=== PATIENT | female | born 1950 | race Caucasian/White ===

== ENCOUNTER → 2017-03-21 | Outpatient (CLI) | payer BC ==
--- NOTE | 2017-03-21 16:36 | KCIC ---
MRI left foot and MR left ankle without contrast dated 03/21/2017 3:30 PM Indication: Pain and swelling since the end of February , recent removal of great toenail possible osteomyelitis, pain. Comparison: Bone scan dated 03/14/2017 Technique: Routine multiplanar multisequence imaging performed to include the hindfoot and forefoot. No contrast administered. Findings: There is mild increased T2 signal at the nailbed of the great toe. Underlying cortex is grossly intact. No bone marrow edema or cortical destruction. No significant loss of signal on the T1-weighted images. Bone marrow signal is otherwise homogeneous. Mild hypertrophic change at the Lisfranc joints and interphalangeal joints throughout. Mild degenerative change of the first MTP joint. Plantar plate is grossly intact. There is mild edema within the plantar foot musculature the dorsal subcutaneous tissues. No focal fluid collection is identified. There is complete rupture of the tibialis anterior tendon which is retracted to the level of the oblique superior medial limb of the inferior extensor retinaculum, near the level of the talonavicular joint. Small amount of fluid along the torn end of the tendon. Medial cuneiform and first metatarsal attachment's are not identified. Mild increased signal within the extensor hallucis longus which is otherwise intact. The flexor tendons are intact. There is mild increased signal within the peroneus longus tendon which is otherwise intact. The Achilles tendon is somewhat thickened with mild increased signal in the tendon substance. No focal tear. Mild inflammatory changes along the Achilles peritenon. Plantar fascia is mildly thickened and of increased signal. Anterior talofibular ligament and posterior talofibular ligament are intact. Calcaneofibular ligament and tibiofibular ligaments are intact. There is mild increased signal along the fibers of the deltoid complex which are otherwise intact. No significant ankle joint effusion. The talar dome is intact. Mild hypertrophic change of the tibiotalar joint, subtalar joint and joints of midfoot. IMPRESSION LEFT ANKLE: 1. Complete rupture of the tibialis anterior tendon with proximal retraction to the level of the superior medial limb of the inferior extensor retinaculum. 2. Mild tendinosis of the peroneus longus. 3. Mild distal Achilles tendinosis with inflammatory changes along the Achilles peritenon. 4. Mild plantar fasciitis. 5. Nonspecific edema throughout the subcutaneous tissues. Given the clinical history this could be related to cellulitis. Diabetic neurovascular edema is also possible. No evidence of abscess or osteomyelitis. IMPRESSION LEFT FOOT: 1. Focal edema along the nailbed of the distal great toe, likely related to recent nail resection. There is no evidence of underlying osteomyelitis. 2. Nonspecific edema throughout the subcutaneous tissues and plantar foot musculature. Electronically signed by: Crescencio Pryor MD (03/21/2017 4:33 PM) [id number]
== END | disposition home or self-care (01) ==
LOC: KCIC MRI 14:09
PROVIDERS: ATTEND Family Medicine
DX: S86.912A Strain of unspecified muscle(s) and tendon(s) at lower leg level, left leg, initial encounter (principal); M72.2 Plantar fascial fibromatosis; M86.9 Osteomyelitis, unspecified; R60.9 Edema, unspecified; X58.XXXA Exposure to other specified factors, initial encounter; Y93.89 Activity, other specified; Y92.89 Other specified places as the place of occurrence of the external cause; Y99.8 Other external cause status
CPT/HCPCS: 73718; 73721